=== PATIENT | male | born 1945 | race Caucasian/White ===

== ENCOUNTER → 2017-02-23 | Outpatient (CLI) | payer MEDICARE, OTHER ==
[~2017-02-23] MED LIST: ASPIRIN 32325 MG/TAB; ASPIRIN E.C. 8181 MG PO; CEPHALEXIN500 M1; COREG12.5 MG PO; NORCO 325 MG-7.1 TAB PO; SYNTHROID0.05 MG/TA PO; ZESTRIL 10MG10 MG PO; ZOCOR 20MG20 MG PO
== END ==
LOC: COL.VAS 13:45
DX: Z01.810 Encounter for preprocedural cardiovascular examination (principal); I50.9 Heart failure, unspecified

== ENCOUNTER → 2017-06-23 | Outpatient (CLI) | payer MEDICARE, OTHER ==
[~2017-06-23] MED LIST changes: +AMBIEN 5MG TABLE5 MG PO; +ASPIRIN 81M81 MG/TA2 PO; +EPA FISH OIL1 SGL PO; +GARLIC100 MG PO; +GAS-X ULTRA ST180 MG PO; +GLUCOSAMINE & C1 CA2 PO; +HCTZ 25MG TAB25 MG PO; +MULTIPLE VITAMI1 CAP PO; +PRAVACHOL 20MG20 MG PO; +PRESERVISIONLUT PO; +TIROSINT50 MC1 PO; +ULTRAM 50MG TAB50 MG PO; +ZESTRIL 20MG TA20 MG PO
== END ==
LOC: COL.RAD 08:49
DX: R32 Unspecified urinary incontinence (principal)

== ENCOUNTER 2021-10-17 12:53 | Outpatient (RCR) | payer MEDICARE, OTHER | END 2021-11-01 | disposition still patient (30) | LOC: MKS.ESL.PT | DX: M17.11 Unilateral primary osteoarthritis, right knee (principal) ==

== ENCOUNTER → 2022-01-01 | Outpatient (RCR) | payer MEDICARE, OTHER | END | disposition home or self-care (01) | LOC: MKS.ESL.PT | DX: M17.11 Unilateral primary osteoarthritis, right knee (principal); Z96.651 Presence of right artificial knee joint ==

== ENCOUNTER 2022-01-29 13:15 | Outpatient (RCR) | payer MEDICARE, OTHER | END 2022-02-01 | disposition home or self-care (01) | LOC: MKS.ESL.PT | DX: M17.11 Unilateral primary osteoarthritis, right knee (principal) ==